=== PATIENT | female | born 1980 | race Caucasian/White ===

== ENCOUNTER 2025-01-28 21:47 | Emergency (ER) | payer OTHER ==
[~2025-01-28] VITALS: Ht 170.2 cm; Wt 90.0 kg
[~2025-01-28 21:47] MED LIST: GUIATUSS AC SY120 ML PO; TESSALON PERLE100 MG PO
[2025-01-28] MEDS ORDERED: FLUOXETINE HCL10 MG PO (21:55)
[2025-01-28] MEDS ORDERED: METOPROLOL TARTRATE 5 MG/5 ML VIAL IV ONE (22:00)
[2025-01-28 22:07] LABS: BASOPHILS 0.3 % (0.1-1.2); EOSINOPHILS 11.6 % (0.7-5.8); HEMOGLOBIN 15.2 g/dL (11.2-15.7); LYMPHOCYTES 25.1 % (19.3-51.7); MCH 27.5 PG (25.6-32.2); MCHC 33.8 g/dL (32.2-35.5); MCV 81.4 fL (79.4-94.8); MONOCYTES 5.9 % (4.7-12.5); NEUTROPHILS 56.8 % (34.0-71.1); PLATELET COUNT 332 K/uL (182-369); RBC 5.53 M/uL (3.93-5.22)
[2025-01-28] MEDS ORDERED: LORazepam 2 MG/ML VIAL IV ONE (22:15)
[2025-01-28 22:18] LABS: INR 0.98 (0.80-1.30); PROTIME 12.6 Sec (11.2-14.2)
[2025-01-28 22:26] LABS: ALBUMIN 3.7 g/dL (3.4-5.0); ALBUMIN/GLOBULIN RATIO 1.06 (1.1-2.4); ANION GAP 14.5 (7-21); BILIRUBIN, TOTAL 0.3 mg/dL (0.2-1.0); BUN/CREATININE RATIO 11.76 (6.0-28.6); CALCIUM 9.4 mg/dL (8.5-10.1); CREATININE, SERUM 1.02 mg/dL (0.55-1.02); MAGNESIUM 1.9 mg/dL (1.8-2.4); POTASSIUM 3.5 mmol/L (3.5-5.1); PROTEIN, TOTAL 7.2 g/dL (6.4-8.2)
[2025-01-28] MEDS ORDERED: LORazepam 1 MG HOME.PACK PO ONE (23:45)
[2025-01-29 00:05] VITALS: BP 117/81
--- NOTE | 2025-01-30 11:12 | EKG ---
[facility] [address] [facility] [place], [place] [address] Signed Sinus tachycardia Cannot rule out Inferior infarct , age undetermined Abnormal ECG No previous ECGs available Confirmed by Shelly Matute MD ([id number]) on 01/30/2025 11:12:15 AM Electronically Signed By: SHELLY MATUTE MD 01/30/251111 PATIENT NAME: JESSICA PRESTON Electrocardiogram DATE OF : 78 PHYSICIAN: SHELLY MATUTE MD REPORT #: [id number] REPORT IS CONFIDENTIAL AND NOT TO BE RELEASED WITHOUT AUTHORIZATION
== END 2025-01-29 00:05 | disposition home or self-care (01) ==
LOC: ED 21:47
PROVIDERS: Family Medicine
DX: I47.10 Supraventricular tachycardia, unspecified (principal); Z91.018 Allergy to other foods; Z79.899 Other long term (current) drug therapy
CPT/HCPCS: 36415; 71260; 80053; 83735; 84484; 84703; 85025; 85379; 85610; 93005; 93010; 93242; 93244; 99285-25; J2060; Q9967

== ENCOUNTER 2025-07-21 07:59 | Day surgery (SDC) | payer OTHER ==
[~2025-07-21] VITALS: Ht 170.2 cm; Wt 89.0 kg
[~2025-07-21 07:59] MED LIST changes: +CLARITIN10 M1 PO; +FLUOXETINE HCL10 MG PO; +IBLOOD GLUCOSE TEST STRIP 1 EA TEST VI PRN; +LACTATED RINGER'S 1,000 ML IV SCH; +LIDOCAINE HCL 1% 5 ML SDV INJ ONE
[2025-07-21 08:08] VITALS: BP 128/82
[2025-07-21] MEDS ORDERED: PAROXETINE HCL10 MG PO (08:10)
[2025-07-21] MEDS ORDERED: LIDOCAINE HCL 2% 5 ML SDV ONE (09:06)
--- NOTE | 2025-07-21 09:50 | NUR ---
07/21/25 0967 Maribell Fitzgerald 0953-PATIENT ARRIVED TO PACU ON 2L NC RR EVEN. PATIENT NONAROUSABLE LAYING LEFT LATERAL ABDOMEN SOFT. IVF INFUSING. SR HR 70'S
[2025-07-21 10:21] VITALS: BP 112/76
--- NOTE | 2025-07-27 11:48 | PATH ---
[facility] [address] [place], [place] [address] Signed SPECIMEN(S): A RECTAL POLYP AT 20 CM SPECIMEN(S): B RECTAL POLYP AT 15 CM SPECIMEN SOURCE: A. RECTAL POLYP AT 20 CM B. RECTAL POLYP AT 15 CM CLINICAL HISTORY: Screening, family history of colon cancer FINAL PATHOLOGIC DIAGNOSIS: A. Rectal polyp at 20 cm: - Tubulovillous adenoma B. Rectal polyp at 15 cm: - Fragments of tubulovillous adenoma and hyperplastic polyp BB MICROSCOPIC EXAMINATION: Histologic sections of all submitted blocks are examined by light microscopy. These findings, together with the gross examination, support the pathologic diagnosis. GROSS DESCRIPTION: A. The specimen, labeled and designated "Cannin, rectal polyp at 20 cm," is received in formalin and consists of two fragments of cazares to red-brown soft tissue (0.2-0.5 cm in greatest dimension), and a red-brown polypoid piece of tissue (1.2 x 0.8 x 0.5 cm). The possible resection margin of the polypoid piece of tissue is inked blue, and the tissue is bisected to reveal pink-cazares soft cut surfaces. The specimen is submitted entirely in cassette (A1). B. The specimen, labeled and designated "Cannin, rectal polyp at 15 cm," is received in formalin and consists of four cazares soft tissue fragments, ranging from 0.3-0.4 cm. Entirely submitted in (B1). VB (under the direct supervision of a pathologist) The Gross Description was prepared using a voice recognition system. The report was reviewed for accuracy; however, sound-alike word errors, addition and/or deletions may occur. If there is any question about this report, please contact Client Services. ADDITIONAL NOTES: Immunohistochemical and/or in situ hybridization studies if performed in this PATIENT NAME: JESSICA PRESTON PATHOLOGY DATE OF : 78 REPORT #: [id number] PHYSICIAN: LEONARDO FELICIANO PCP: JULIANA GRAY PAC REPORT IS CONFIDENTIAL AND NOT TO BE RELEASED WITHOUT AUTHORIZATION [facility] [address] [facility] [place], [place] [address] Signed case included appropriate positive controls that reacted as expected. This test was developed and its performance characteristics determined by [facility]. It has not been cleared or approved by the U.S. Food and Drug Administration. The FDA has determined that such clearance or approval is not necessary. This test is used for clinical purposes. It should not be regarded as investigational or for research. [facility] is certified under the Clinical Laboratory Improvement Amendments of 1988 (CLIA) as qualified to perform high complexity clinical laboratory testing. PERFORMING LABORATORY: Technical component was performed by [facility], [address] [place] [id number] (CLIA# [id number]). Professional interpretation was performed by [facility] - [address] [place] [id number] (CLIA#: [id number]). Diagnostician: Tavon Patel MD Pathologist Electronically Signed 07/27/2025 Copies: ~ PATIENT NAME: JESSICA PRESTON PATHOLOGY DATE OF : [birth year] REPORT #: [id number] PHYSICIAN: LEONARDO PATHOLOGY PCP: JULIANA GRAY PAC REPORT IS CONFIDENTIAL AND NOT TO BE RELEASED WITHOUT AUTHORIZATION
== END 2025-07-21 10:30 | disposition home or self-care (01) ==
LOC: OPS 07:59 → DS 07:59 → OPS 09:25 → DS 09:45 → OPS 09:45
PROVIDERS: ATTEND Surgery
PROC: 0DDN8ZX Extraction of Sigmoid Colon, Via Natural or Artificial Opening Endoscopic, Diagnostic (ICD-10-PCS; 2025-07-21)
PROC: 0DDP8ZX Extraction of Rectum, Via Natural or Artificial Opening Endoscopic, Diagnostic (ICD-10-PCS; principal; 2025-07-21 09:25)
DX: Z12.11 Encounter for screening for malignant neoplasm of colon (principal); D12.8 Benign neoplasm of rectum; K64.8 Other hemorrhoids; D17.1 Benign lipomatous neoplasm of skin and subcutaneous tissue of trunk; E66.9 Obesity, unspecified; Z79.899 Other long term (current) drug therapy; Z91.048 Other nonmedicinal substance allergy status; Z91.018 Allergy to other foods; Z90.49 Acquired absence of other specified parts of digestive tract; Z80.0 Family history of malignant neoplasm of digestive organs
CPT/HCPCS: 00811; J2003; J2704; J7121